=== PATIENT | female | born 1990 | race Caucasian/White ===

== ENCOUNTER 2017-09-24 09:52 | Emergency (ER) | payer OTHER ==
[~2017-09-24] VITALS: Ht 170.2 cm; Wt 74.6 kg
[2017-09-24 10:13] VITALS: BP 100/57; Ht 170.2 cm; Wt 74.6 kg
== END 2017-09-24 12:54 | disposition home or self-care (01) ==
LOC: ED 09:52
DX: J02.0 Streptococcal pharyngitis (principal)
CPT/HCPCS: J1100

== ENCOUNTER 2018-08-07 23:00 | Emergency (ER) | payer OTHER ==
[~2018-08-07] VITALS: Ht 167.6 cm; Wt 76.7 kg
[2018-08-07 23:25] VITALS: Ht 167.6 cm; Wt 76.7 kg
[2018-08-08 00:10] VITALS: BP 116/75
== END 2018-08-08 00:10 | disposition home or self-care (01) ==
LOC: ED 23:00
DX: L02.01 Cutaneous abscess of face (principal)
CPT/HCPCS: J2001

== ENCOUNTER 2019-04-27 22:50 | Emergency (ER) | payer OTHER ==
[~2019-04-27] VITALS: Ht 170.2 cm; Wt 81.2 kg
[2019-04-27 22:55] VITALS: Ht 170.2 cm; Wt 81.2 kg
[2019-04-28 01:45] VITALS: BP 112/69
== END 2019-04-28 01:45 | disposition home or self-care (01) ==
LOC: ED 22:50
DX: N76.0 Acute vaginitis (principal); Z98.890 Other specified postprocedural states
CPT/HCPCS: 87491; 87591; Q0092